=== PATIENT | male | born 1945 | race Caucasian/White ===

== ENCOUNTER 2019-01-19 17:08 | Emergency (ER) | payer OTHER ==
[2019-01-19 17:20] VITALS: TEMP 97; BMI 26.6
--- NOTE | 2019-01-19 18:00 | PDOC ---
Attending Attestation - HPI HPI: 01/19/19 18:11 The patient is a 73 year old male, with a significant past medical history HTN, high cholesterol, borderline DM, who presents to the emergency department today for evaluation of a laceration to the upper lip after falling from the top of a 14 ft ladder. The patient states that the ladder was resting on the scaffolding when it gave out and he clenched on to the ladder as it fell forward. Patient denies LOC or hitting his head. He was able to ambulate after. The patient has no other complaints. He is requesting a cosmetic surgeon. The patient denies chest pain, shortness of breath, headache and dizziness. Denies fever, chills, nausea, vomit, diarrhea and constipation. Allergies: NKA Social history: None reported PCP: Dr. Alvarez - Medical Decision Making 01/19/19 17:[address] Herron for plastics consult, awaiting call back. 01/19/19 18:15 Second call placed to Dr. Herron, awaiting call back. 01/19/19 18:[address] Herron, awaiting recommendations. <Laure Morgan - Last Filed: 01/19/19 18:26> - Resident Resident Name: Lashawn Nagel - ED Attending Attestation I have performed the following: I have examined & evaluated the patient, The case was reviewed & discussed with the resident, I agree w/resident's findings & plan, Exceptions are as noted - HPI HPI: 01/19/19 17:59 73-year-old male fell down the side of a 14 foot ladder sustaining an maxillary lip laceration - Physicial Exam PE: 01/21/19 16:34 wnwd 73 yo male was on a ladder that was prompted up against the scaffold. The scaffold gave way and he held onto the ladder and fell forward landing on his front and face and sustained a severe full thickness maxillary lip laceration when his face slammed into the ladder edge He was ambulatory at the scene and did not have any LOC. The only visible injury to his head and face was the lip laceration 01/21/19 16:40 head: no scalp laceration ,no scalp hematomas eyes trung eomi,no vidal signs ears no hemotympanum Oral exam: no tooth fractures,reproducible occlusion,there is a large v shaped laceration that extends from the vermilion border thru the muscle and ends on the the labial frenum intraorally, there is no mandibular step off, no pinpoint tenderness of mandible, no pre- auricular tenderness neck no midline tenderness lungs cta b/l cvs [id number] abd nontender extremities no deformities, there are some superficial abrasions to his knees, he has full range of motion with his limbs neuro axox3,ambulatory <Veronica Ansari - Last Filed: 01/21/19 16:57> Attestations - Attestations 01/19/19 18:12 Documentation prepared by Laure Morgan, acting as medical transcription editor for Veronica Ansari MD. <Laure Morgan - Last Filed: 01/19/19 18:26> Procedure Note Procedure: LACERATION of MAXILLARY LIP Area was irrigated with copious amount of saline Dental block of maxillary central incisors and maxillary lip was done with 2 cc of lidocaine the kin border was sutured with one 6.0 proline suture and then 2 internal resorbable sutures were placed to repair the muscle laceration of th lip Two additional proline sutures were placed on the external lip and then the labial mucusal laceration was repaired using four resorbable sutures pt had his tetanus booster was updated and he was given IV antibiotics He stated that he was already on augmentin prescribed by his PCP for a URI He was told to place bacitracin on the wound after 24 hours and to return for removable of the sutures on the skin I did call him on 01/21/19 for followup and he stated the wound was healing well and he was not having any problems <Veronica Ansari - Last Filed: 01/21/19 16:57>
[2019-01-19] MEDS ORDERED: CEFAZOLIN 1 GM/D5W 1 GM/50 ML BAG IVPB ONE (18:07)
[2019-01-19] MEDS ORDERED: DIPHTH,PERTUSS(ACELL),TET 0.5 ML DISP.SYRIN IM ONE ×2 (18:07→18:35)
--- NOTE | 2019-01-19 18:07 | PDOC ---
History of Present Illness - General Chief Complaint: Injury Stated Complaint: LACERATION Time Seen by Provider: 01/19/19 17:29 - History of Present Illness Initial Comments: 01/19/19 18:01 73 year old man with history of HTN and HLD not on anticoagulants who presents after falling 14 feet from a ladder and hitting his face on the grounfd the ladder while falling. He fell to the ground, denies head trauma, neck trauma, loss of consciousness, trauma to any other extremities, denies abdominal pain, back pain or any other complaints at bedside. He attempted to call PCP to be seen by a Plastic Surgeon but he was unable to get through to his PCP. Past History - Past Medical History Allergies/Adverse Reactions: Allergies Allergy/AdvReac Type Severity Reaction Status Date / Time No Known Drug Allergies Allergy Verified 11/17/15 07:38 Home Medications: Ambulatory Orders Unobtainable 01/19/19 Anemia: No Asthma: No Cancer: No Cardiac Disorders: No CVA: No COPD: No CHF: No Dementia: No Diabetes: Yes GI Disorders: No Disorders: No HTN: Yes Hypercholesterolemia: Yes Liver Disease: No Seizures: No Thyroid Disease: No - Surgical History Abdominal Surgery: No Cardiac Surgery: No Cholecystectomy: No Gastric Stapling: No - Suicide/Smoking/Psychosocial Hx Smoking History: Never smoked Have you smoked in the past 12 months: No Information on smoking cessation initiated: No Hx Alcohol Use: No Drug/Substance Use Hx: No Substance Use Type: None Hx Substance Use Treatment: No *Physical Exam - Vital Signs Last Vital Signs Temp Pulse Resp BP Pulse Ox 97 F L 83 20 159/93 99 01/19/19 17:17 01/19/19 17:17 01/19/19 17:17 01/19/19 17:17 01/19/19 17:17 - Physical Exam Comments: 01/19/19 18:08 mid lip laceration from kin border to the frenulum Moderate Sedation - Procedure Monitoring Vital Signs: Procedure Monitoring Vital Signs Temperature 97 F L 01/19/19 17:17 Pulse Rate 83 01/19/19 17:17 Respiratory Rate 20 01/19/19 17:17 Blood Pressure 159/93 01/19/19 17:17 O2 Sat by Pulse Oximetry (%) 99 01/19/19 17:17 Medical Decision Making - Medical Decision Making 02/24/19 18:09 ED Course: Patient desires plastic surgery to evaluate laceration Plastic Surgery called and discussed case *DC/Admit/Observation/Transfer Diagnosis at time of Disposition: Laceration, History of falling - Discharge Dispostion Disposition: HOME Condition at time of disposition: Improved Decision to Admit order: No - Referrals Referrals: Abdelrahman Alvarez MD [Primary Care Provider] - - Patient Instructions Printed Discharge Instructions: DI for Laceration Repair -- Simple Additional Instructions: You were seen today for a laceration repair. Keep the area 100% clean and dry for 24-48 hours. After that period you can let water run down the area in the shower, but do not scrub with soap and water. Take Tylenol and/or Ibuprofen over the counter for pain, take as advised on labels. Return to the Emergency Department in 5 days for a wound check and possible suture removal. Return sooner for redness or swelling to the area, discharge from the wound, fever, chills, nausea, vomiting, chest pain, shortness of breath, lightheadedness like you may pass out or any other new, worsening or concerning symptoms. Avoid hot foods or liquids, eat soft liquids and food for 4 days. Take extra strength Tylenol for pain relief. Follow up with your primary care doctor in 1-2 days. Your care is not complete until you follow up. - Post Discharge Activity
[2019-01-19] MEDS ORDERED: CEFAZOLIN 1 GM/D5W 1 GM/50 ML BAG ONE (18:35)
[2019-01-19] MEDS ORDERED: ACETAMINOPHEN 1000 MG/100 ML VIAL (NON FORMULARY) IVPB ONE (19:49)
[2019-01-19] MEDS ORDERED: ACETAMINOPHEN INJECTION 100 ML IVPB ONE (19:56)
[2019-01-19 20:06] VITALS: BP 170/86; PULSE 85
== END 2019-01-19 20:32 | disposition home or self-care (01) ==
LOC: JER 17:08
PROC: 3E0234Z Introduction of Serum, Toxoid and Vaccine into Muscle, Percutaneous Approach (ICD-10-PCS; principal; 2019-01-19)
PROC: 3E03329 Introduction of Other Anti-infective into Peripheral Vein, Percutaneous Approach (ICD-10-PCS; 2019-01-19)
PROC: 3E033NZ Introduction of Analgesics, Hypnotics, Sedatives into Peripheral Vein, Percutaneous Approach (ICD-10-PCS; 2019-01-19)
DX: S01.511A Laceration without foreign body of lip, initial encounter (principal); M25.572 Pain in left ankle and joints of left foot; M25.571 Pain in right ankle and joints of right foot; W11.XXXA Fall on and from ladder, initial encounter; Y93.89 Activity, other specified; Y92.018 Other place in single-family (private) house as the place of occurrence of the external cause; Y99.8 Other external cause status
CPT/HCPCS: 90471; 90715; 96365; 96375; 99283-25; J0131

== ENCOUNTER 2019-01-29 16:52 | Emergency (ER) | payer OTHER ==
--- NOTE | 2019-01-29 16:54 | PDOC ---
Rapid Medical Evaluation Chief Complaint: Suture/Staple Removal(Here) Time Seen by Provider: 01/29/19 16:53 Medical Evaluation: Allergies Allergy/AdvReac Type Severity Reaction Status Date / Time No Known Drug Allergies Allergy Verified 11/17/15 07:38 01/29/19 16:53 here for suture removal to upper lip Pe: suture site appears clean and dry A:suture removal P: patient to fast track for further mANAGEMENT of care. 01/29/19 16:49 Discharge Disposition - Diagnosis Visit for suture removal - Referrals - Patient Instructions - Post Discharge Activity
[2019-01-29 17:05] VITALS: BP 151/77; PULSE 90; TEMP 98.7; BMI 26.6
--- NOTE | 2019-01-29 17:20 | PDOC ---
Suture Removal/Wound Check HPI - History of Present Illness Chief Complaint: Suture/Staple Removal(Here) Stated Complaint: Suture/Staple Removal(Here) Time Seen by Provider: 01/29/19 16:53 History Source: Yes: Patient Exam Limitations: Yes: No Limitations Treated at: [facility] ED - Previous ED Treatment Type of procedure performed on last visit: Yes: Laceration Repair Tetanus Immunization: Yes: Up to Date Past History - Past Medical History Allergies/Adverse Reactions: Allergies Allergy/AdvReac Type Severity Reaction Status Date / Time No Known Drug Allergies Allergy Verified 01/29/19 16:55 Home Medications: Ambulatory Orders Unobtainable 01/19/19 Anemia: No Asthma: No Cancer: No Cardiac Disorders: No CVA: No COPD: No CHF: No Dementia: No Diabetes: Yes GI Disorders: No Disorders: No HTN: Yes Hypercholesterolemia: Yes Liver Disease: No Seizures: No Thyroid Disease: No - Surgical History Abdominal Surgery: No Cardiac Surgery: No Cholecystectomy: No Gastric Stapling: No - Suicide/Smoking/Psychosocial Hx Smoking History: Never smoked Have you smoked in the past 12 months: No Hx Alcohol Use: No Drug/Substance Use Hx: No Substance Use Type: None Hx Substance Use Treatment: No Suture Removal/Wound Check PE - Physical Exam Laceration/Wound Check Symptoms: reports: None Current Severity Level: None Maximum Severity Level: None Pain Localization: None Location of Laceration/Wound: bilateral: Mouth (mid point upper lip into gingival surface, approximating but not complete. ) *Review of Systems - Review of Systems Able to Perform ROS?: Yes Constitutional: Yes: See HPI. No: Symptoms Reported, Fever All Other Systems: Reviewed and Negative *Physical Exam - Vital Signs Last Vital Signs Temp Pulse Resp BP Pulse Ox 98.7 F 90 18 151/77 98 01/29/19 16:52 01/29/19 16:52 01/29/19 16:52 01/29/19 16:52 01/29/19 16:52 - Physical Exam General Appearance: Yes: Nourished, Appropriately Dressed. No: Mild Distress HEENT: positive: ABRAHAM, Normal ENT Inspection, TMs Normal, Pharynx Normal Moderate Sedation - Procedure Monitoring Vital Signs: Procedure Monitoring Vital Signs Temperature 98.7 F 01/29/19 16:52 Pulse Rate 90 01/29/19 16:52 Respiratory Rate 18 01/29/19 16:52 Blood Pressure 151/77 01/29/19 16:52 O2 Sat by Pulse Oximetry (%) 98 01/29/19 16:52 Medical Decision Making - Medical Decision Making 01/29/19 17:21 3 external sutures and 3 internal sutures removed, wound is approximating however not complete. No active bleed, *DC/Admit/Observation/Transfer Diagnosis at time of Disposition: Visit for suture removal - Discharge Dispostion Disposition: HOME Condition at time of disposition: Stable Decision to Admit order: No - Referrals Referrals: Abdelrahman Alvarez MD [Primary Care Provider] - - Patient Instructions Printed Discharge Instructions: DI for Suture Removal Additional Instructions: Rest, avoid strenuous activity or exercise until scabbing is completely resolved May use bacitracin ointment until scabbing is gone After may use vitamin E oil, poke hole in vitamin E capsule and use oil from the capsule on wound- may help resolve some of the discoloration of the scar Keep wound out of the sun for at least one year to avoid darkening of scar tissue - Post Discharge Activity Forms/Work/School Notes: Back to Work
== END 2019-01-29 17:21 | disposition home or self-care (01) ==
LOC: JERFT 16:52
DX: Z48.02 Encounter for removal of sutures (principal)
CPT/HCPCS: 99281-25

== ENCOUNTER 2019-02-02 10:39 | Emergency (ER) | payer OTHER ==
[2019-02-02 10:51] VITALS: TEMP 98.1; BMI 24.5
--- NOTE | 2019-02-02 11:39 | PDOC ---
History of Present Illness <Manuela Hardy - Last Filed: 02/02/19 15:15> - History of Present Illness Initial Comments: 02/02/19 11:36 The patient is a 73 year old male, with a significant past medical history metastatic prostate ca (mets to bone, on oral daily meds), NIDDM who presents to the emergency department today for left-sided headache since a fall he sustained on 01/19. Patient was seen here for the fall and had a laceration repair to the upper lip which he reports has healed well. Patient denied LOC or hitting his head at the time and was able to ambulate after the incident. He reports since the fall he has had a constant, L sided dull headache that has been keeping him up at night for the last week. He denies nausea, vomiting, but states his appetite has been a bit down. Denies focal weakness or numbness. Tried tylenol 500mg for pain this morning with moderate relief. At the time of the fall, pt was taking naproxen and aspirin but has not taken those in about a week and a half. Not on any daily anticoagulation. Denies neck pain, CP, SOB, abd pain, LE edema, urinary sxs. Pt also reports left lower back pain since the fall for which he has had a negative CT scan. Allergies: NKA Social history: None reported PCP: Dr. Alvarez <Nicci Martinez - Last Filed: 02/02/19 15:43> - General Chief Complaint: Headache Stated Complaint: HEADACHE Time Seen by Provider: 02/02/19 11:06 Past History <Manuela Hardy - Last Filed: 02/02/19 15:15> - Past Medical History Anemia: No Asthma: No Cancer: Yes (metistatic) Cardiac Disorders: No CVA: No COPD: No CHF: No Dementia: No Diabetes: Yes GI Disorders: No Disorders: No HTN: Yes Hypercholesterolemia: Yes Liver Disease: No Seizures: No Thyroid Disease: No - Surgical History Abdominal Surgery: No Cardiac Surgery: No Cholecystectomy: No Gastric Stapling: No - Suicide/Smoking/Psychosocial Hx Smoking History: Never smoked Have you smoked in the past 12 months: No Hx Alcohol Use: No Drug/Substance Use Hx: No Substance Use Type: None Hx Substance Use Treatment: No <Nicci Martinez - Last Filed: 02/02/19 15:43> - Past Medical History Allergies/Adverse Reactions: Allergies Allergy/AdvReac Type Severity Reaction Status Date / Time No Known Drug Allergies Allergy Verified 02/02/19 10:45 Home Medications: Ambulatory Orders Abiraterone Acetate [Zytiga] 1,000 mg PO DAILY 02/02/19 Prednisone 5 mg PO DAILY 02/02/19 Review of Systems - Review of Systems Comments:: 02/02/19 11:49 GENERAL/CONSTITUTIONAL: No fever or chills. No weakness. HEAD, EYES, EARS, NOSE AND THROAT: No change in vision. No ear pain or discharge. No sore throat. GASTROINTESTINAL: No nausea, vomiting, diarrhea or constipation. GENITOURINARY: No dysuria, frequency, or change in urination. CARDIOVASCULAR: No chest pain or shortness of breath. RESPIRATORY: No cough, wheezing, or hemoptysis. MUSCULOSKELETAL: No joint or muscle swelling or pain. No neck or back pain. SKIN: No rash NEUROLOGIC: + left-sided headache, no vertigo, loss of consciousness, or change in strength/sensation. ENDOCRINE: No increased thirst. No abnormal weight change. HEMATOLOGIC/LYMPHATIC: No anemia, easy bleeding, or history of blood clots. ALLERGIC/IMMUNOLOGIC: No hives or skin allergy. <Nicci Martinez - Last Filed: 02/02/19 15:43> *Physical Exam - Vital Signs Last Vital Signs Temp Pulse Resp BP Pulse Ox 98.1 F 72 18 154/86 97 02/02/19 10:42 02/02/19 10:42 02/02/19 10:42 02/02/19 10:42 02/02/19 13:28 <Manuela Hardy - Last Filed: 02/02/19 15:15> - Vital Signs Last Vital Signs Temp Pulse Resp BP Pulse Ox 98.1 F 72 18 154/86 99 02/02/19 10:42 02/02/19 10:42 02/02/19 10:42 02/02/19 10:42 02/02/19 10:42 - Physical Exam Comments: 02/02/19 11:49 GENERAL: Awake, alert, and fully oriented, in no acute distress. Appears younger than stated age. Comfortable appearing. HEAD: No signs of trauma EYES: PERRLA, EOMI, sclera anicteric, conjunctiva clear ENT: Oropharynx clear without exudates. Moist mucosa NECK: Normal ROM, supple, no lymphadenopathy, JVD, or masses LUNGS: Breath sounds equal, clear to auscultation bilaterally. No wheezes, and no crackles HEART: Regular rate and rhythm, normal S1 and S2, no murmurs, rubs or gallops ABDOMEN: Soft, nontender, normoactive bowel sounds. No guarding, no rebound. No masses EXTREMITIES: Normal range of motion, no edema. No erythema or tenderness BACK: No midline spinal tenderness in cervical/thoracic/lumbar region. No paraspinal ttp. No CVAT. NEUROLOGICAL: Normal speech, cranial nerves intact, negative pronator drift, 5/ 5 strength in all 4 extremities, normal sensation to light touch in all 4 extremities, normal cerebellar exam, normal gait, normal tone SKIN: Warm, Dry, normal turgor, no rashes or lesions noted. Well healed lac to L upper lip, c/d/i. <Nicci Martinez - Last Filed: 02/02/19 15:43> Moderate Sedation - Procedure Monitoring Vital Signs: Procedure Monitoring Vital Signs Temperature 98.1 F 02/02/19 10:42 Pulse Rate 72 02/02/19 10:42 Respiratory Rate 18 02/02/19 10:42 Blood Pressure 154/86 02/02/19 10:42 O2 Sat by Pulse Oximetry (%) 97 02/02/19 13:28 <Manuela Hardy - Last Filed: 02/02/19 15:15> - Procedure Monitoring Vital Signs: Procedure Monitoring Vital Signs Temperature 98.1 F 02/02/19 10:42 Pulse Rate 72 02/02/19 10:42 Respiratory Rate 18 02/02/19 10:42 Blood Pressure 154/86 02/02/19 10:42 O2 Sat by Pulse Oximetry (%) 99 02/02/19 10:42 <Nicci Martinez - Last Filed: 02/02/19 15:43> ED Treatment Course - LABORATORY CBC & Chemistry Diagram: 02/02/19 13:10 02/02/19 13:10 - Medications Given in the ED: ED Medications Discontinued Medications Generic Name Dose Route Start Last Admin Trade Name Freq PRN Reason Stop Dose Admin Acetaminophen 500 mg 02/02/19 11:53 02/02/19 12:28 Tylenol - PO 02/02/19 11:54 325 mg ONCE ONE Administration Metoclopramide HCl 10 mg 02/02/19 12:51 02/02/19 13:15 Reglan Injection - IVPB 02/02/19 12:52 10 mg ONCE ONE Administration - Additional Consults Time Called: 15:15 (Callback Dr. Cedillo's office who will inform him of message sent by ER physician. ) Consult/PCP: Dr. Niles Cedillo <Manuela Hardy - Last Filed: 02/02/19 15:15> - LABORATORY CBC & Chemistry Diagram: 02/02/19 13:10 02/02/19 13:10 - RADIOLOGY Radiology Studies Ordered: Category Date Time Status HEAD CT WITHOUT CONTRAST [CT] Stat CT Scan 02/02/19 11:31 Ordered <Nicci Martinez - Last Filed: 02/02/19 15:43> Medical Decision Making - Medical Decision Making 02/02/19 11:53 73yo M hx metastatic prostate ca, NIDDM presents to the ED with headache since fall 01/19. Vitals unremarkable. Exam unremarkable, pt is intact neurologically. DDx includes SDH vs concussion. Plan to check CTH, treat pain, and reassess. 02/02/19 13:01 CTH with 6mm L sided older appearing SDH No midline shift or mass effect Dr. Durán consulted, will evaluate pt once out of OR in about 2 hours As such, pt placed on ED obs Case discussed with Dr. Soto, pt accepted to ED obs under Dr. Alvarez Will continue to manage pt Pt has been updated about the plan Remains neuro intact and well appearing In the meantime, will order labs and give IV reglan 02/02/19 15:30 Dr. Cedillo at the bedside 02/02/19 15:41 Pt cleared for DC after evaluation by Dr. Cedillo Pt well appearing, feels better with tylenol/reglan Pt clinically stable for DC home I discussed the physical exam findings, ancillary test results and final diagnoses with the patient. I answered all of the patient's questions. The patient was satisfied with the care received and felt comfortable with the discharge plan and treatment plan. The patient will call their primary care physician within 24 hours to arrange follow-up and will return to the Emergency Department with any new, persistent or worsening symptoms. <Nicci Martinez - Last Filed: 02/02/19 15:43> *DC/Admit/Observation/Transfer <Manuela Hardy - Last Filed: 02/02/19 15:15> - Discharge Dispostion Decision to Admit order: No - Attestations Physician Attestion: 02/02/19 15:43 I, Dr. Nicci Martinez MD, attest that this document has been prepared under my direction and personally reviewed by me in its entirety. I further attest, that it accurately reflects all work, treatment, procedures and medical decision -making performed by me. <Nicci Martinez - Last Filed: 02/02/19 15:43> Diagnosis at time of Disposition: Subdural hematoma, Fall, Headache - Discharge Dispostion Disposition: HOME Condition at time of disposition: Stable
[2019-02-02] MEDS ORDERED: ACETAMINOPHEN 500 MG TABLET (FP) PO ONE (11:53)
[2019-02-02] MEDS ORDERED: ACETAMINOPHEN 325 MG TABLET (FP) ONE (12:23)
[2019-02-02] MEDS ORDERED: METOCLOPRAMIDE HCL INJECTION 10 MG/2 ML VIAL IVPB ONE (12:51)
[2019-02-02] MEDS ORDERED: METOCLOPRAMIDE HCL INJECTION 10 MG/2 ML VIAL ONE (13:11)
[2019-02-02 13:24] LABS: BASO % 0.7 % (0-2.0); EOS % 1.5 % (0-4.5); HEMATOCRIT 36.4 % (35.4-49); HEMOGLOBIN 12.4 GM/dL (11.7-16.9); LYMPH % 15.3 % (8-40); MCH 27.4 pg (25.7-33.7); MCHC 34.1 g/dl (32.0-35.9); MEAN CELL VOLUME 80.5 fl (80-96); MEAN PLT VOLUME 8.1 fl (7.5-11.1); MONO % 7.7 % (3.8-10.2); NEUT % 74.8 % (42.8-82.8); PLATELET COUNT 262 K/MM3 (134-434); RBC 4.53 M/mm3 (4.00-5.60); RDW 13.2 % (11.9-15.9); WHITE BLOOD COUNT 5.9 K/mm3 (4.0-10.0)
[2019-02-02 13:30] LABS: INR 0.97 (0.83-1.09); PROTHROMBIN TIME (PATIENT) 11.5 SEC (9.7-13.0)
[2019-02-02 13:33] LABS: ACTIVATED PTT 30.2 SECONDS (25.2-36.5)
[2019-02-02 14:12] LABS: ALBUMIN 3.7 g/dl (3.4-5.0); ALK PHOS 104 U/L (45-117); ANION GAP 6 MMOL/L (8-16); BILIRUBIN,TOTAL 0.5 mg/dL (0.2-1); BLOOD UREA NITROGEN 20 mg/dL (7-18); CALCIUM 8.5 mg/dL (8.5-10.1); CHLORIDE 102 mmol/L (98-107); CO2 28 mmol/L (21-32); CREATININE 0.9 mg/dL (0.55-1.3); GLUCOSE,RANDOM 143 mg/dL (74-106); POTASSIUM 4.1 mmol/L (3.5-5.1); SGOT/AST 18 U/L (15-37); SGPT/ALT 18 U/L (13-61); SODIUM 136 mmol/L (136-145)
[2019-02-02 15:56] VITALS: BP 153/89; PULSE 70
--- NOTE | 2019-02-02 17:23 | CONSULT ---
Consult - text type - Consultation Consultation Note: NEUROSURGERY CONSULTATION Patient is a 73-year-old male with a history of a fall two weeks ago. Patient has had progressive headaches particularly at night. Patient presents for evaluation to the [facility] emergency room. CT scan reveals a 7 mm left-sided sub dural hematoma which is subacute. This hematoma has density consistent with a two week old hematoma. There is CSF between the hematoma and the people surface. On physical examination, the patient is completely neurologically intact. There is no pronator drift nor extinction to double simultaneous simulation. I discussed the nature of this injury, its natural history and its likely sequelae. The patient may be discharged and follow up in my office in one month. Kathy given him contact information and a list of warning signs which may prompt an expedited evaluation. All questions were answered.
== END 2019-02-02 16:08 | disposition home or self-care (01) ==
LOC: JER 10:39 → JERBED 13:03 → UNDOADMIN 13:03 → JER 16:08
PROC: 3E033GC Introduction of Other Therapeutic Substance into Peripheral Vein, Percutaneous Approach (ICD-10-PCS; principal; 2019-02-02)
DX: S06.5X0S Traumatic subdural hemorrhage without loss of consciousness, sequela (principal); W11.XXXS Fall on and from ladder, sequela
CPT/HCPCS: 36415; 70450-TC; 80053; 85025; 85610; 85730; 86850; 86900; 86901; 96374; 99283-25

== ENCOUNTER 2022-09-10 19:26 | Inpatient (IN) | payer OTHER ==
[2022-09-10] MEDS ORDERED: LACTATED RINGERS SOLUTION 1000 ML INFUS.BAG IV ONE (19:45)
[2022-09-10 20:07] VITALS: RESP 18
[2022-09-10 20:41] LABS: BASO % 0.3 % (0-2.0); EOS % 0.3 % (0-4.5); HEMATOCRIT 38.9 % (35.4-49); HEMOGLOBIN 12.8 GM/dL (11.7-16.9); LYMPH % 15.2 % (8-40); MCH 25.9 pg (25.7-33.7); MEAN CELL VOLUME 78.6 fl (80-96); MEAN PLT VOLUME 8.5 fl (7.5-11.1); MONO % 8.8 % (3.8-10.2); NEUT % 75.4 % (42.8-82.8); PLATELET COUNT 515 10^3/uL (134-434); RBC 4.94 M/mm3 (4.00-5.60); RDW 13.3 % (11.9-15.9); WHITE BLOOD COUNT 6.3 K/mm3 (4.0-10.0)
[2022-09-10 21:00] LABS: CALCIUM 9.7 mg/dL (8.5-10.1)
[2022-09-10 21:01] LABS: ALBUMIN 3.5 g/dl (3.4-5.0); BLOOD UREA NITROGEN 28.8 mg/dL (7-18)
[2022-09-10 21:04] LABS: CREATININE 1.3 mg/dL (0.55-1.3)
[2022-09-10 21:05] LABS: BILIRUBIN,TOTAL 0.7 mg/dL (0.2-1); TOT PROT 7.2 g/dl (6.4-8.2)
[2022-09-10] MEDS ORDERED: MELATONIN 5 MG TABLETS PO ONE (21:59)
[2022-09-10] MEDS ORDERED: MELATONIN 5 MG TABLETS ONE (22:32)
[2022-09-11] MEDS: LACTATED RINGERS SOLUTION 1,000 ML IV SCH (02:25)
[2022-09-11 03:58] VITALS: BMI 26.0
[2022-09-11] MEDS: ENOXAPARIN NA (PORCINE) 40 MG/0.4 ML DISP.SYRIN SQ SCH (10:34)
[2022-09-11] MEDS ORDERED: CEFTRIAXONE 1 GM in DEXTROSE 5%-WATER - 50 ML IVPB ONE (11:12)
[2022-09-11] MEDS ORDERED: ALPRAZolam 0.25 MG TABLET PO ONE (12:26)
[2022-09-11 12:30] LABS: BLOOD UREA NITROGEN 25.7 mg/dL (7-18)
[2022-09-11 12:32] LABS: CALCIUM 9.3 mg/dL (8.5-10.1)
[2022-09-11 12:33] LABS: HEMATOCRIT 32.5 % (35.4-49); HEMOGLOBIN 11.4 GM/dL (11.7-16.9); MEAN CELL VOLUME 77.3 fl (80-96); MEAN PLT VOLUME 8.4 fl (7.5-11.1); PHOSPHOROUS 2.6 mg/dL (2.5-4.9); PLATELET COUNT 389 10^3/uL (134-434); RDW 13.3 % (11.9-15.9); WHITE BLOOD COUNT 5.8 K/mm3 (4.0-10.0)
[2022-09-11 12:34] LABS: CREATININE 1.1 mg/dL (0.55-1.3)
[2022-09-11] MEDS: VENLAFAXINE HCL 37.5 MG TABLET PO SCH (12:58)
[2022-09-11] MEDS: LISINOPRIL 20 MG TABLET PO SCH (12:58)
[2022-09-11] MEDS: metFORMIN HCL 500 MG TABLET (FP) PO SCH (17:19)
[2022-09-11 19:24] LABS: URINE APPEARANCE CLOUDY; URINE BILIRUBIN NEGATIVE (NEGATIVE); URINE COLOR YELLOW; URINE GLUCOSE (UA) NEGATIVE (NEGATIVE); URINE KETONE TRACE (NEGATIVE); URINE LEUK ESTERASE NEGATIVE (NEGATIVE); URINE NITRITE NEGATIVE (NEGATIVE); URINE PROTEIN TRACE (NEGATIVE)
[2022-09-11] MEDS: ATORVASTATIN CA 80 MG TABLET (FP) PO SCH (21:39)
[2022-09-11] MEDS ORDERED: POTASSIUM CHLORIDE TABS 20 MEQ TABLET.ER (FP) PO ONE (21:51)
[2022-09-11] MEDS: SODIUM CHLORIDE 1,000 ML IV SCH (22:13)
[2022-09-11] MEDS: ALPRAZolam 0.25 MG TABLET PO PRN (22:16)
[2022-09-12] MEDS: LACTATED RINGERS SOLUTION 1,000 ML IV SCH (00:10)
[2022-09-12] MEDS: metFORMIN HCL 500 MG TABLET (FP) PO SCH ×2 (06:37→17:08)
[2022-09-12] MEDS: INSULIN SLIDING SCALE (NOVOLOG) 1 VIAL SQ SCH ×4 (06:41→21:07)
[2022-09-12 09:31] LABS: BASO % 0.6 % (0-2.0); EOS % 1.1 % (0-4.5); HEMATOCRIT 33.2 % (35.4-49); HEMOGLOBIN 11.1 GM/dL (11.7-16.9); LYMPH % 22.9 % (8-40); MCH 26.2 pg (25.7-33.7); MCHC 33.5 g/dl (32.0-35.9); MEAN CELL VOLUME 78.1 fl (80-96); MEAN PLT VOLUME 8.3 fl (7.5-11.1); MONO % 9.7 % (3.8-10.2); NEUT % 65.7 % (42.8-82.8); PLATELET COUNT 373 10^3/uL (134-434); RBC 4.25 M/mm3 (4.00-5.60); RDW 13.3 % (11.9-15.9); WHITE BLOOD COUNT 4.9 K/mm3 (4.0-10.0)
[2022-09-12] MEDS: ALPRAZolam 0.25 MG TABLET PO PRN ×2 (09:48→21:53)
[2022-09-12] MEDS: VENLAFAXINE HCL 37.5 MG TABLET PO SCH (09:48)
[2022-09-12] MEDS: predniSONE 5 MG TABLET (UD) PO SCH (09:48)
[2022-09-12] MEDS: LISINOPRIL 20 MG TABLET PO SCH (09:48)
[2022-09-12] MEDS: ENOXAPARIN NA (PORCINE) 40 MG/0.4 ML DISP.SYRIN SQ SCH (09:49)
[2022-09-12 09:57] LABS: CALCIUM 8.5 mg/dL (8.5-10.1)
[2022-09-12] MEDS ORDERED: POTASSIUM CHLORIDE TABS 20 MEQ TABLET.ER (FP) PO ONE (17:37)
[2022-09-12] MEDS: ACETAMINOPHEN 325 MG TABLET (FP) PO PRN (18:02)
[2022-09-12] MEDS: SODIUM CHLORIDE 1,000 ML IV SCH ×2 (18:17→22:20)
[2022-09-12] MEDS: ATORVASTATIN CA 80 MG TABLET (FP) PO SCH (21:06)
[2022-09-13] MEDS: LACTATED RINGERS SOLUTION 1,000 ML IV SCH ×2 (00:35→06:19)
[2022-09-13] MEDS: ACETAMINOPHEN 325 MG TABLET (FP) PO PRN (05:46)
[2022-09-13] MEDS: metFORMIN HCL 500 MG TABLET (FP) PO SCH (06:19)
[2022-09-13] MEDS: INSULIN SLIDING SCALE (NOVOLOG) 1 VIAL SQ SCH ×2 (06:19→12:07)
[2022-09-13] MEDS ORDERED: AMINO ACIDS/PROTEIN HYDROLYS 30 ML LIQUID.PKT PO SCH (08:00)
[2022-09-13] MEDS: predniSONE 5 MG TABLET (UD) PO SCH (09:41)
[2022-09-13] MEDS: ENOXAPARIN NA (PORCINE) 40 MG/0.4 ML DISP.SYRIN SQ SCH (09:42)
[2022-09-13] MEDS: VENLAFAXINE HCL 37.5 MG TABLET PO SCH (09:42)
[2022-09-13] MEDS: LISINOPRIL 20 MG TABLET PO SCH (09:43)
[2022-09-13] MEDS: ALPRAZolam 0.25 MG TABLET PO PRN (09:51)
[2022-09-13 10:02] LABS: BASO % 0.6 % (0-2.0); HEMATOCRIT 31.3 % (35.4-49); HEMOGLOBIN 10.8 GM/dL (11.7-16.9); MCH 27.1 pg (25.7-33.7); MCHC 34.3 g/dl (32.0-35.9); MEAN CELL VOLUME 78.9 fl (80-96); MEAN PLT VOLUME 7.8 fl (7.5-11.1); MONO % 6.9 % (3.8-10.2); NEUT % 73.5 % (42.8-82.8); PLATELET COUNT 350 10^3/uL (134-434); RBC 3.97 M/mm3 (4.00-5.60); RDW 13.3 % (11.9-15.9); WHITE BLOOD COUNT 4.9 K/mm3 (4.0-10.0)
[2022-09-13] MEDS ORDERED: oxyCODONE HCL 5 MG TABLET PO PRN ×2 (10:34)
[2022-09-13 10:36] LABS: BLOOD UREA NITROGEN 11.1 mg/dL (7-18); MAGNESIUM 1.5 mg/dL (1.8-2.4)
[2022-09-13 10:38] LABS: CALCIUM 8.1 mg/dL (8.5-10.1)
[2022-09-13 10:39] LABS: CREATININE 0.9 mg/dL (0.55-1.3)
[2022-09-13 10:40] LABS: BILIRUBIN,TOTAL 0.5 mg/dL (0.2-1); TOT PROT 5.2 g/dl (6.4-8.2)
[2022-09-13 10:45] LABS: ALBUMIN 2.6 g/dl (3.4-5.0)
[2022-09-13 14:46] VITALS: BP 157/83; PULSE 74; TEMP 97.2
[2022-09-13] MEDS ORDERED: DOCUSATE SODIUM 100 MG CAPSULE (FP) PO SCH (22:00)
== END 2022-09-13 16:30 | disposition home health service (06) | DRG 641 ==
LOC: JER 19:26 → JERBED 21:58 → J6S 09-11 01:58
PROVIDERS: ADMIT Family Medicine; ATTEND Nurse Practitioner Acute Care
DX: E86.0 Dehydration (principal); C79.51 Secondary malignant neoplasm of bone; E46 Unspecified protein-calorie malnutrition; C61 Malignant neoplasm of prostate; E11.9 Type 2 diabetes mellitus without complications; R53.1 Weakness; Z68.26 Body mass index [BMI] 26.0-26.9, adult; R62.7 Adult failure to thrive; F41.8 Other specified anxiety disorders
CPT/HCPCS: 0241U-QW; 36415; 71045-TC-FY; 71250-TC; 80048; 80053; 81003; 82533; 82962; 83735; 84100; 84439; 84443; 84484; 85025; 85027; 87086; 93005; 93010; 97116-GP; 97161-GP; 99285-25